=== PATIENT | female | born 1935 | race Caucasian/White ===

== ENCOUNTER 2019-03-25 12:42 | Emergency (ER) | payer MEDICARE, MEDICAID ==
--- NOTE | 2019-03-25 13:01 | EDM.PDOC ---
ED HPI GENERAL MEDICAL PROBLEM - General Chief Complaint: Lower Extremity Injury/Pain Stated Complaint: FALL HOME PAIN HIP Time Seen by Provider: 03/25/19 12:45 Source of Information: Reports: Patient, EMS, EMS Notes Reviewed History Limitations: Reports: No Limitations - History of Present Illness INITIAL COMMENTS - FREE TEXT/NARRATIVE: This is a 84yo F who states she fell getting out of bed. She has severe 10/10 pain of the right hip and leg down to the ankle. She denies any other injuries. She did bump her head a little but denies any loss of consciousness or pain or headache. Patient denies any chest pain or shortness of breath. Denies any dizziness at this time. 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(s) (Ambulance has given 100mcg of fentanyl and 2.5mg of Versaid) Right Hip Pain Score (Numeric/FACES): 10 - Related Data Allergies Allergy/AdvReac Type Severity Reaction Status Date / Time No Known Allergies Allergy Verified 03/25/19 13:50 Home Meds: Home Meds ALPRAZolam [Alprazolam] 0.5 tab PO DAILY PRN 01/18/16 [History] Aspirin [Adult Low Dose Aspirin EC] 81 mg PO DAILY 01/18/16 [History] Bimatoprost [LUMIGAN 0.01% Ophth Soln] 1 drop EYEBOTH QPM 01/18/16 [History] Brimonidine [Alphagan 0.2% Ophth Soln] 1 drop EYEBOTH BID 01/18/16 [History] Fluticasone Propionate [Flonase] 1 spray NASBOTH DAILY 01/18/16 [History] Hydrochlorothiazide 1 tab PO DAILY 01/18/16 [History] Lisinopril 2 tab PO DAILY 01/18/16 [History] Omeprazole 40 mg PO ACBREAKFAST 01/18/16 [History] Sertraline HCl 50 mg PO QPM 01/18/16 [History] Simvastatin 1 tab PO BEDTIME 01/18/16 [History] amLODIPine Besylate [Amlodipine Besylate] 1 tab PO DAILY 01/18/16 [History] ALPRAZolam [Alprazolam] 0.25 mg PO TID PRN 03/25/19 [History] Past Medical History HEENT History: Reports: Hard of Hearing Cardiovascular History: Reports: Heart Murmur, High Cholesterol, Hypertension Gastrointestinal History: Reports: GERD 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 ED EXAM, GENERAL - Physical Exam Exam: See Below Exam Limited By: No Limitations General Appearance: WD/WN, Moderate Distress, Other (drowsy from medications) Eye Exam: Bilateral Eye: EOMI, PERRL Ears: Normal External Exam Nose: Normal Inspection Throat/Mouth: Normal Inspection Head: Atraumatic, Normocephalic Neck: Normal Inspection, Supple, Non-Tender Respiratory/Chest: No Respiratory Distress, Lungs Clear, Normal Breath Sounds Cardiovascular: Normal Peripheral Pulses, Regular Rate, Rhythm Peripheral Pulses: 2+: Dorsalis Pedis (L), Dorsalis Pedis (R) GI/Abdominal: Normal Bowel Sounds, Soft, Non-Tender, No Abnormal Bruit Back Exam: Normal Inspection Extremities: Other (Right hip, leg and ankle pain) Neurological: Alert, Oriented, CN II-XII Intact, Slow to Respond Psychiatric: Normal Affect, Normal Mood Skin Exam: Warm, Dry, Intact Course - Vital Signs Last Recorded V/S: Last Vital Signs Temp 36.8 C 03/25/19 14:37 Pulse 74 03/25/19 14:37 Resp 18 03/25/19 14:37 BP 143/65 H 03/25/19 14:37 Pulse Ox 97 03/25/19 14:37 - Orders/Labs/Meds Orders: Active Orders 24 hr Category Date Time Status Ankle 2V Rt [CR] Stat Exams 03/25/19 Taken Labs: Laboratory Tests 03/25/19 03/25/19 Range/Units 13:10 13:10 WBC 10.6 D (4.0-11.0) K/uL RBC 4.40 (3.80-5.80) M/uL Hgb 13.5 (11.5-16.5) g/dL Hct 38.2 (37.0-47.0) % MCV 87 (76-96) fL MCH 30.7 (27.0-32.0) pg MCHC 35.3 H (31.0-35.0) g/dL RDW 12.6 (11.0-16.0) % Plt Count 191 D (150-500) K/uL MPV 9.9 (6.0-10.0) fL Neut % (Auto) 73.3 H (45.0-70.0) % Lymph % (Auto) 20.8 (20.0-40.0) % [place] % (Auto) 3.9 (3.0-10.0) % Eos % (Auto) 1.8 (1.0-5.0) % Baso % (Auto) 0.2 (0.0-0.5) % Neut # (Auto) 7.74 H (2.00-7.50) K/uL Lymph # (Auto) 2.20 (1.50-4.00) K/uL [place] # (Auto) 0.41 (0.20-0.80) K/uL Eos # (Auto) 0.19 (0.04-0.40) K/uL Baso # (Auto) 0.02 (0.02-0.10) K/uL Sodium 143 (136-145) mmol/L Potassium 4.0 (3.5-5.1) mmol/L Chloride 107 (98-107) mmol/L Carbon Dioxide 25.3 (21.0-32.0) mmol/L Anion Gap 14.7 (5.0-15.0) mmol/L BUN 31 H (8-26) mg/dL Creatinine 1.26 H (0.55-1.02) mg/dL Est Cr Clr Drug Dosing TNP Estimated GFR (MDRD) 41 L (>60) MLS/MIN BUN/Creatinine Ratio 24.6 (6-25) Glucose 140 H D (74-100) mg/dL Calcium 9.4 (8.5-10.1) mg/dL Total Bilirubin 0.6 (0.0-1.0) mg/dL AST 16 (15-37) U/L ALT 16 (12-78) U/L Alkaline Phosphatase 65 (46-116) U/L Total Protein 7.1 (6.4-8.2) g/dL Albumin 4.0 (3.4-5.0) g/dL Globulin 3.1 (2.2-4.2) g/dL Albumin/Globulin Ratio 1.3 (0.8-2.0) TSH, Ultra Sensitive 3.547 D (0.358-3.740) uIU/mL Meds: Medications Discontinued Medications Generic Name Dose Route Start Last Admin Trade Name Freq PRN Reason Stop Dose Admin Hydromorphone HCl 1 mg 03/25/19 14:49 03/25/19 14:52 Dilaudid IVPUSH 03/25/19 14:50 1 mg ONETIME ONE Administration Hydromorphone HCl Confirm 03/25/19 15:01 Dilaudid Administered 03/25/19 15:02 Dose 2 mg .ROUTE .STK-MED ONE Ondansetron HCl Confirm 03/25/19 14:31 03/25/19 14:47 Zofran Administered 03/25/19 14:32 Not Given Dose 4 mg .ROUTE .STK-MED ONE Ondansetron HCl 4 mg 03/25/19 14:47 03/25/19 14:48 Zofran IVPUSH 03/25/19 14:48 4 mg ONETIME ONE Administration Departure - Departure Time of Disposition: 15:30 Disposition: DC/Tfer to Acute Hospital 02 Condition: Good Clinical Impression: Closed right hip fracture Qualifiers: Encounter type: initial encounter Qualified Code(s): S72.001A - Fracture of unspecified part of neck of right femur, initial encounter for closed fracture - Discharge Information Referrals: PCP,None [Primary Care Provider] - Forms: ED Department Discharge Sepsis Event Note - Focused Exam Vital Signs: Vital Signs Temp Pulse Resp BP Pulse Ox 03/25/19 14:37 36.8 C 74 18 143/65 H 97 03/25/19 13:59 57 L 18 140/78 99 03/25/19 13:45 65 18 138/69 98 03/25/19 13:24 76 18 109/40 L 96 03/25/19 12:47 36.2 C 66 16 117/78 97 03/25/19 12:42 36.2 C 66 16 117/78 97 Date Exam was Performed: 03/25/19 Time Exam was Performed: 14:57 - Problem List & Annotations (1) Closed right hip fracture SNOMED Code(s): 822102890 Code(s): S72.001A - FRACTURE OF UNSP PART OF NECK OF RIGHT FEMUR, INIT Status: Acute Priority: High Current Visit: Yes Qualifiers: Encounter type: initial encounter Qualified Code(s): S72.001A - Fracture of unspecified part of neck of right femur, initial encounter for closed fracture - Problem List Review Problem List Initiated/Reviewed/Updated: Yes - My Orders Last 24 Hours: My Active Orders 03/25/19 Ankle 2V Rt [CR] Stat - Assessment/Plan Last 24 Hours: My Active Orders 03/25/19 Ankle 2V Rt [CR] Stat Plan: Patient to be transferred to [facility] for Orthopedic care. [facility] beds were full.
--- NOTE | 2019-03-25 14:31 | CT ---
DATE OF SERVICE: 03/25/2019 CLINICAL DATA: Fall Right femur CT: Multislice axial acquisition was performed. Axial images and sagittal and coronal reformations are reviewed. No priors. There is a comminuted, mildly impacted, intertrochanteric fracture of the right proximal femur with coxa varied deformity. The fracture does extend inferiorly into the femoral diaphysis. No other fractures. There are osteoarthritic changes of the right knee joint and right hip joint. Impression: Right hip fracture. See above. MTDD
--- NOTE | 2019-03-25 14:45 | CT ---
DATE OF SERVICE: 03/25/2019 CLINICAL DATA: Fall Pelvic CT: Multislice axial acquisition was performed. Axial images and sagittal and coronal reformations are reviewed. There is a comminuted intertrochanteric fracture on the right with coxa vera deformity and minimal impaction. No other fractures. There are degenerative changes involving the SI joints and symphysis pubis. There moderate osteoarthritic changes involving both hip joints. There are sclerotic bone lesions adjacent to the roof of the acetabulum on the left, in the left iliac wing, and the left proximal femur. These may represent bone islands. The possibility of sclerotic metastatic disease should be considered. There is soft tissue swelling adjacent to the right proximal femur and hip. There is a sclerotic lesion located subcutaneously in the anterior abdominal wall on the left most likely representing an injection granuloma. Impression: Comminuted intertrochanteric fracture on the right. MTDD
[2019-03-25] MEDS: Ondansetron 4 MG/2 ML SDV ONE (14:47)
[2019-03-25] MEDS: Ondansetron 4 MG/2 ML SDV IVPUSH ONE (14:48)
[2019-03-25] MEDS: HYDROmorphone 2 MG/ML Syringe IVPUSH ONE (14:52)
--- NOTE | 2019-03-25 14:58 | CR ---
DATE OF SERVICE: 03/25/2019 CLINICAL DATA: Fall Right ankle: There is diffuse osteopenia. There is a questionable lucency through the base of the fourth metatarsal suspicious for a nondisplaced fracture. No other evidence of fracture or dislocation. There are osteoarthritic changes involving multiple joints. There are plantar and posterior calcaneal spurs. No focal lytic or blastic bone lesions. MTDD
[2019-03-25] MEDS ORDERED: HYDROmorphone 2 MG/ML SDV ONE (15:01)
[2019-03-25 15:05] VITALS: BP 117/57; PULSE 78
== END 2019-03-25 15:45 ==
LOC: LB.ED 12:42
DX: S72.001A Fracture of unspecified part of neck of right femur, initial encounter for closed fracture (principal); I10 Essential (primary) hypertension; E78.00 Pure hypercholesterolemia, unspecified; K21.9 Gastro-esophageal reflux disease without esophagitis; F41.9 Anxiety disorder, unspecified; F32.9 Major depressive disorder, single episode, unspecified; Z79.82 Long term (current) use of aspirin; Z79.899 Other long term (current) drug therapy; W06.XXXA Fall from bed, initial encounter
CPT/HCPCS: 36415; 72192; 73600; 73700; 80053; 84443; 85025; 96374; 96375; 99285; J1170; J2405; 99284

== ENCOUNTER 2019-05-07 17:03 | Observation (INO) | payer MEDICARE, MEDICAID ==
--- NOTE | 2019-05-07 17:18 | PCM.HP.2 ---
H&P History of Present Illness - General Date of Service: 05/07/19 Admit Problem/Dx: Admission Diagnosis/Problem Admission Diagnosis/Problem Weakness Source of Information: Patient History Limitations: Reports: No Limitations - History of Present Illness Initial Comments - Free Text/Narative: This is a 84yo F with prior right hip arthroplasty due to fracture with weakness and inability to move in the home or take care of herself. Her pain is manageable but not under full control as well. She is unable to get up by herself or transfer. She has gotten much worse since her discharge from Swing bed per patient. Onset of Symptoms: Reports: Gradual Duration of Symptoms: Reports: Getting Worse Location: Reports: Generalized Severity: Moderate Improves with: Reports: None Worsens with: Reports: None - Related Data Allergies/Adverse Reactions: Allergies Allergy/AdvReac Type Severity Reaction Status Date / Time No Known Allergies Allergy Verified 03/25/19 13:50 Home Medications: Home Meds ALPRAZolam [Alprazolam] 0.5 tab PO DAILY PRN 01/18/16 [History] Aspirin [Adult Low Dose Aspirin EC] 81 mg PO DAILY 01/18/16 [History] Bimatoprost [LUMIGAN 0.01% Ophth Soln] 1 drop EYEBOTH QPM 01/18/16 [History] Brimonidine [Alphagan 0.2% Ophth Soln] 1 drop EYEBOTH BID 01/18/16 [History] Fluticasone Propionate [Flonase] 1 spray NASBOTH DAILY 01/18/16 [History] Hydrochlorothiazide 1 tab PO DAILY 01/18/16 [History] Lisinopril 2 tab PO DAILY 01/18/16 [History] Omeprazole 40 mg PO ACBREAKFAST 01/18/16 [History] Sertraline HCl 50 mg PO QPM 01/18/16 [History] Simvastatin 1 tab PO BEDTIME 01/18/16 [History] amLODIPine Besylate [Amlodipine Besylate] 1 tab PO DAILY 01/18/16 [History] ALPRAZolam [Alprazolam] 0.25 mg PO TID PRN 03/25/19 [History] Past Medical History HEENT History: Reports: Hard of Hearing Cardiovascular History: Reports: Heart Murmur, High Cholesterol, Hypertension Gastrointestinal History: Reports: GERD 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 Exam - Exam Exam: See Below - Exam General: Alert, Oriented, Cooperative HEENT: PERRLA, Conjunctiva Clear, EACs Clear Neck: Supple, Trachea Midline Lungs: Clear to Auscultation, Normal Respiratory Effort Cardiovascular: Regular Rate, Regular Rhythm Back Exam: Normal Inspection Extremities: Normal Inspection Neuro Extensive - Mental Status: Alert, Oriented x3, Normal Mood/Affect Neuro Extensive - Motor, Sensory, Reflexes: Other (generalized weakness of arms and legs, ) Psychiatric: Alert, Normal Affect, Normal Mood - Problem List (1) Weakness generalized SNOMED Code(s): 92501875 ICD Code: R53.1 - WEAKNESS Status: Acute Priority: High Current Visit: Yes (2) Closed right hip fracture SNOMED Code(s): 443866491 ICD Code: S72.001A - FRACTURE OF UNSP PART OF NECK OF RIGHT FEMUR, INIT Status: Resolved Priority: High Current Visit: No Qualifiers: Encounter type: sequela Qualified Code(s): S72.001S - Fracture of unspecified part of neck of right femur, sequela Problem List Initiated/Reviewed/Updated: Yes Orders Last 24hrs: Active Orders 24 hr Category Date Time Status Patient Status [ADT] Urgent ADT 05/07/19 17:11 Ordered Up With Assistance [RC] ASDIRECTED Care 05/07/19 17:11 Ordered Vital Signs [RC] Q4H Care 05/07/19 17:11 Ordered OT Evaluation and Treatment [CONS] Routine Cons 05/07/19 17:11 Ordered PT Evaluation and Treatment [CONS] Routine Cons 05/07/19 17:11 Ordered Regular Diet [DIET] Diet 05/07/19 Breakfast Ordered ALPRAZolam [Alprazolam] Med 05/07/19 17:12 Ordered 0.25 mg PO TID PRN Aspirin [Halfprin] Med 05/08/19 08:00 Ordered 81 mg PO DAILY Bimatoprost [LUMIGAN 0.01% Ophth Soln] Med 05/07/19 20:00 Ordered 1 drop EYEBOTH QPM Brimonidine [Alphagan 0.2% Ophth Soln] Med 05/07/19 20:00 Ordered 1 drop EYEBOTH BID Fluticasone Propionate [Flonase] Med 05/08/19 08:00 Ordered 1 spray NASBOTH DAILY Omeprazole [Omeprazole] Med 05/08/19 07:00 Ordered 40 mg PO ACBREAKFAST Sertraline [Zoloft] Med 05/07/19 20:00 Ordered 50 mg PO QPM Simvastatin [Zocor] Med 05/07/19 20:00 Ordered 20 mg PO BEDTIME amLODIPine [Norvasc] Med 05/08/19 08:00 Ordered 5 mg PO DAILY hydroCHLOROthiazide Med 05/08/19 08:00 Ordered 12.5 mg PO DAILY lisinopriL [Prinivil] Med 05/08/19 08:00 Ordered 10 mg PO DAILY Assessment/Plan Comment:: Patient to be placed in observation for management and PT/OT evaluation for ability to return home. Discussed likely need for subacute rehab for strength and ability to do ADLs.
[2019-05-07] MEDS ORDERED: MECLIZINE 25 MG PO PRN (18:03)
[2019-05-07] MEDS ORDERED: traMADol 50 MG Tab PO PRN (18:05)
[2019-05-07] MEDS ORDERED: ALPRAZOLAM 0.5 MG PO PRN (20:00)
[2019-05-07] MEDS ORDERED: Simvastatin 20 MG Tab*PT OWN MED PO SCH (20:00)
[2019-05-07] MEDS ORDERED: SERTRALINE 50 MG PO SCH (20:00)
[2019-05-07] MEDS ORDERED: BIMATOPROST 0.01% EYEBOTH SCH (20:00)
[2019-05-07] MEDS: CHOLECALCIFEROL 25 MCG PO SCH (20:28)
[2019-05-07] MEDS: BRIMONIDINE 0.2% EYEBOTH SCH (20:29)
[2019-05-07] MEDS: Acetaminophen 500 MG Tab PO PRN (21:04)
[2019-05-08 00:30] VITALS: PULSE 63
[2019-05-08] MEDS: CHOLECALCIFEROL 25 MCG PO SCH (07:29)
[2019-05-08] MEDS: BRIMONIDINE 0.2% EYEBOTH SCH (07:31)
[2019-05-08] MEDS ORDERED: Aspirin 81 MG Tab.EC PO SCH (08:00)
[2019-05-08] MEDS ORDERED: POTASSIUM CHLORIDE 10 MEQ PO SCH (08:00)
[2019-05-08] MEDS ORDERED: LISINOPRIL 20 MG PO SCH (08:00)
[2019-05-08] MEDS ORDERED: Lisinopril 10 MG Tab PO SCH (08:00)
[2019-05-08] MEDS ORDERED: AMLODIPINE 5 MG PO SCH (08:00)
[2019-05-08] MEDS ORDERED: FLUTICASONE PROPIONATE NASBOTH SCH (08:00)
[2019-05-08] MEDS ORDERED: HYDROCHLOROTHIAZIDE 12.5 MG PO SCH (08:00)
[2019-05-08 08:05] VITALS: BP 137/62
[2019-05-08] MEDS: Acetaminophen 500 MG Tab PO PRN (08:53)
--- NOTE | 2019-05-08 10:16 | PCM.DCSUM1 ---
Discharge Summary - Discharge Data Discharge Date: 05/08/19 Discharge Disposition: DC/Tfer W/I Hosp To Swing 61 Condition: Good - Referral to Home Health Primary Care Physician: PCP None - Discharge Diagnosis/Problem(s) (1) Weakness generalized SNOMED Code(s): 23207893 ICD Code: R53.1 - WEAKNESS Status: Acute Priority: High Current Visit: Yes (2) Closed right hip fracture SNOMED Code(s): 325192128 ICD Code: S72.001A - FRACTURE OF UNSP PART OF NECK OF RIGHT FEMUR, INIT Status: Resolved Priority: High Current Visit: No Qualifiers: Encounter type: sequela Qualified Code(s): S72.001S - Fracture of unspecified part of neck of right femur, sequela - Patient Summary/Data Consults: Consultations 05/07/19 17:11 OT Evaluation and Treatment [CONS] Routine Please Evaluate and Treat. OT Reason for Consult: ADL's This query below is only for informational purposes and is not editable. PT Evaluation and Treatment [CONS] Routine Please Evaluate and Treat. PT Reason for Consult: Ambulation This query below is only for informational purposes and is not editable. - Discharge Plan Home Medications: Home Meds Aspirin [Adult Low Dose Aspirin EC] 81 mg PO DAILY 01/18/16 [History] Bimatoprost [LUMIGAN 0.01% Ophth Soln] 1 drop EYEBOTH QPM 01/18/16 [History] Brimonidine [Alphagan 0.2% Ophth Soln] 1 drop EYEBOTH BID 01/18/16 [History] Fluticasone Propionate [Flonase] 1 spray NASBOTH DAILY 01/18/16 [History] Hydrochlorothiazide 1 tab PO DAILY 01/18/16 [History] Omeprazole 40 mg PO ACBREAKFAST 01/18/16 [History] Sertraline HCl 50 mg PO QPM 01/18/16 [History] Simvastatin 1 tab PO BEDTIME 01/18/16 [History] amLODIPine Besylate [Amlodipine Besylate] 1 tab PO DAILY 01/18/16 [History] ALPRAZolam [Alprazolam] 0.25 mg PO TID PRN 03/25/19 [History] Acetaminophen 1,000 mg PO Q8HR PRN 05/07/19 [History] Cholecalciferol (Vitamin D3) [Vitamin D3] 25 mcg PO BID 05/07/19 [History] Lisinopril [Zestril] 20 mg PO DAILY 05/07/19 [History] Meclizine [Antivert] 25 mg PO TID PRN 05/07/19 [History] Potassium Chloride [Klor-Con 10] 10 meq PO DAILY 05/07/19 [History] traMADol [Ultram] 50 mg PO Q6H PRN 05/07/19 [History] - Discharge Summary/Plan Comment DC Time >30 min.: No Discharge Summary/Plan Comment: Patient to be admitted to swing bed for rehabilitation due to weakness and inability to manage ALDs, transfers and ambulation. - Patient Data Vitals - Most Recent: Last Vital Signs Temp 36.9 C 05/08/19 07:25 Pulse 63 05/08/19 07:25 Resp 16 05/08/19 07:25 BP 137/62 05/08/19 07:25 Pulse Ox 97 05/08/19 07:25 Weight - Most Recent: 75.841 kg Med Orders - Current: Current Medications Acetaminophen (Tylenol Extra Strength) 1,000 mg PO Q8HR PRN PRN Reason: Pain (mild 1-3) Last Admin: 05/08/19 08:53 Dose: 1,000 mg Aspirin (Halfprin) 81 mg PO DAILY [facility] Last Admin: 05/08/19 08:53 Dose: 81 mg Alprazolam 0.5 Mg (Tab *Pt Own Med*) 0 each PO TID PRN PRN Reason: ANXIETY Last Admin: 05/07/19 21:05 Dose: 1 each Amlodipine 5 Mg Tab* (Pt Own Med*) 0 each PO DAILY [facility] Last Admin: 05/08/19 07:30 Dose: 1 each Bimatoprost 0.01% Ophth Soln 2.5 Ml Bottle*Pt Own Med* 0 each EYEBOTH QPM [facility] Last Admin: 05/07/19 20:28 Dose: 1 each Brimonidine 0.2% Ophth Soln 5 Ml Bottle*Pt Own Med* 0 each EYEBOTH BID [facility] Last Admin: 05/08/19 07:31 Dose: 1 each Fluticasone Propionate Nasal [place] 16 Gm Bottle* Pt Own Med* 0 each NASBOTH DAILY [facility] Last Admin: 05/08/19 07:32 Dose: 1 each Hydrochlorothiazide 12.5 Mg Cap*Pt Own Med* 0 each PO DAILY [facility] Last Admin: 05/08/19 07:32 Dose: 1 each (Omeprazole [ Omeprazole] 40 Mg)* Pt Own Med* 0 each PO ACBREAKFAST [facility] Last Admin: 05/08/19 06:57 Dose: 1 each Sertraline 50 Mg Tab (*Pt Own Med*) 0 each PO QPM [facility] Last Admin: 05/07/19 20:29 Dose: 1 each Simvastatin 20 Mg (Tab*Pt Own Med*) 0 each PO BEDTIME [facility] Last Admin: 05/07/19 20:29 Dose: 1 each (Cholecalciferol ( Vitamin D3) [Vitamin D3] 25 Mcg)*Pt Own Med* 0 each PO BID@ 0800,1700 [facility] Last Admin: 05/08/19 07:29 Dose: 1 each Lisinopril 20 Mg Tab (*Pt Own Med*) 0 each PO DAILY [facility] Last Admin: 05/08/19 08:53 Dose: 1 each (Meclizine [Antivert (] 25 Mg)*Pt Own Med*) 0 each PO TID PRN PRN Reason: Dizziness Potassium Chloride 10 Meq Tab.Er*Pt Own Med* 0 each PO DAILY [facility] Last Admin: 05/08/19 07:33 Dose: 1 each Tramadol HCl (Ultram) 50 mg PO Q6H PRN PRN Reason: Pain (moderate 4-6) Discontinued Medications Lisinopril (Prinivil) 10 mg PO DAILY [facility]
== END 2019-05-08 10:30 | disposition swing bed (61) ==
LOC: UNDOADMOB 17:03 → LB.MS 17:03
PROVIDERS: ADMIT Family Medicine; ATTEND Family Medicine
DX: R53.1 Weakness (principal); S72.001S Fracture of unspecified part of neck of right femur, sequela; I10 Essential (primary) hypertension; E78.00 Pure hypercholesterolemia, unspecified; K21.9 Gastro-esophageal reflux disease without esophagitis; F41.9 Anxiety disorder, unspecified; F32.9 Major depressive disorder, single episode, unspecified; H91.90 Unspecified hearing loss, unspecified ear; M19.90 Unspecified osteoarthritis, unspecified site; W19.XXXS Unspecified fall, sequela; Z79.82 Long term (current) use of aspirin; Z79.899 Other long term (current) drug therapy
CPT/HCPCS: 36415; 80053; 84443; 85025; 97110-GP; 97161-GP; A9270-GY; G0378; G0379

== ENCOUNTER 2019-05-08 09:53 | Inpatient (IN) | payer MEDICARE, MEDICAID ==
--- NOTE | 2019-05-08 10:23 | PCM.HP.2 ---
H&P History of Present Illness - General Date of Service: 05/08/19 Admit Problem/Dx: Admission Diagnosis/Problem Admission Diagnosis/Problem Weakness Source of Information: Patient, Old Records History Limitations: Reports: No Limitations - History of Present Illness Initial Comments - Free Text/Narative: This is a 84yo F admitted to swing bed for rehabilitation and strengthening. Patient is currently recovering from an intertrochanteric right hip fracture post arthroplasty. She continues to be weak and unable to care for herself at home and maintain her regular ADLs. Duration of Symptoms: Reports: Constant Severity: Mild Improves with: Reports: None Worsens with: Reports: Movement Associated Symptoms: Reports: Weakness - Related Data Allergies/Adverse Reactions: Allergies Allergy/AdvReac Type Severity Reaction Status Date / Time No Known Allergies Allergy Verified 03/25/19 13:50 Home Medications: Home Meds Aspirin [Adult Low Dose Aspirin EC] 81 mg PO DAILY 01/18/16 [History] Bimatoprost [LUMIGAN 0.01% Ophth Soln] 1 drop EYEBOTH QPM 01/18/16 [History] Brimonidine [Alphagan 0.2% Ophth Soln] 1 drop EYEBOTH BID 01/18/16 [History] Fluticasone Propionate [Flonase] 1 spray NASBOTH DAILY 01/18/16 [History] Hydrochlorothiazide 1 tab PO DAILY 01/18/16 [History] Omeprazole 40 mg PO ACBREAKFAST 01/18/16 [History] Sertraline HCl 50 mg PO QPM 01/18/16 [History] Simvastatin 1 tab PO BEDTIME 01/18/16 [History] amLODIPine Besylate [Amlodipine Besylate] 1 tab PO DAILY 01/18/16 [History] ALPRAZolam [Alprazolam] 0.25 mg PO TID PRN 03/25/19 [History] Acetaminophen 1,000 mg PO Q8HR PRN 05/07/19 [History] Cholecalciferol (Vitamin D3) [Vitamin D3] 25 mcg PO BID 05/07/19 [History] Lisinopril [Zestril] 20 mg PO DAILY 05/07/19 [History] Meclizine [Antivert] 25 mg PO TID PRN 05/07/19 [History] Potassium Chloride [Klor-Con 10] 10 meq PO DAILY 05/07/19 [History] traMADol [Ultram] 50 mg PO Q6H PRN 05/07/19 [History] Past Medical History HEENT History: Reports: Hard of Hearing Cardiovascular History: Reports: Heart Murmur, High Cholesterol, Hypertension Gastrointestinal History: Reports: GERD Genitourinary History: Reports: Urinary Incontinence 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 Exam - Exam Exam: See Below - Exam General: Alert, Oriented, Cooperative HEENT: PERRLA, Conjunctiva Clear, EACs Clear Neck: Supple, Trachea Midline Lungs: Clear to Auscultation, Normal Respiratory Effort Cardiovascular: Regular Rate, Regular Rhythm GI/Abdominal Exam: Normal Bowel Sounds Back Exam: Normal Inspection Extremities: Leg Pain Peripheral Pulses: 2+: Dorsalis Pedis (L), Dorsalis Pedis (R) Skin: Warm, Dry, Intact - Problem List (1) Weakness generalized SNOMED Code(s): 99330410 ICD Code: R53.1 - WEAKNESS Status: Acute Priority: High (2) Closed right hip fracture SNOMED Code(s): 088667765 ICD Code: S72.001A - FRACTURE OF UNSP PART OF NECK OF RIGHT FEMUR, INIT Status: Resolved Priority: High Qualifiers: Encounter type: sequela Problem List Initiated/Reviewed/Updated: Yes Orders Last 24hrs: Active Orders 24 hr Category Date Time Status Patient Status [ADT] Routine ADT 05/08/19 10:16 Ordered Ambulate [RC] ASDIRECTED Care 05/08/19 10:16 Ordered Oxygen Therapy [RC] PRN Care 05/08/19 10:16 Ordered VTE/DVT Education [RC] Per Unit Routine Care 05/08/19 10:16 Ordered Vital Signs [RC] PER UNIT ROUTINE Care 05/08/19 10:16 Ordered OT Evaluation and Treatment [CONS] Routine Cons 01/30/20 10:16 Ordered PT Evaluation and Treatment [CONS] Routine Cons 05/08/19 10:16 Ordered Regular Diet [DIET] Diet 05/08/19 Lunch Ordered Resuscitation Status Routine Resus Stat 05/08/19 10:16 Ordered Assessment/Plan Comment:: Patient admitted to swing bed for management of her weakness and rehabilitation. She is willing to work with PT/OT and plan of care is for return to full independent activities at home. Continue to monitor pain and manage - currently controlled.
[2019-05-08] MEDS ORDERED: Tuberculin, PPD 5 Units/0.1 ML 1 ML MDV IDERM ONE (11:31)
[2019-05-08] MEDS ORDERED: ALPRAZOLAM 0.25 MG PO PRN (13:46)
[2019-05-08] MEDS ORDERED: ALPRAZolam 0.25 MG Tab PO PRN (15:02)
[2019-05-08] MEDS: Acetaminophen 500 MG Tab PO PRN (19:21)
[2019-05-08] MEDS: ALPRAZolam 0.25 MG Tab PO SCH (19:21)
[2019-05-08] MEDS: Cholecalciferol (Vitamin D3) 25 MCG Tab PO SCH (19:22)
[2019-05-08] MEDS: Simvastatin 20 MG Tab PO SCH (19:22)
[2019-05-08] MEDS: Sertraline 50 MG Tab PO SCH (19:22)
[2019-05-08] MEDS: Brimonidine 0.2% Ophth Soln 5 ML Bottle EYEBOTH SCH (19:31)
[2019-05-08] MEDS ORDERED: ALPRAZolam 0.25 MG Tab PO SCH (20:00)
[2019-05-09] MEDS: Omeprazole 20 MG Cap.CR PO SCH (06:31)
[2019-05-09] MEDS: Brimonidine 0.2% Ophth Soln 5 ML Bottle EYEBOTH SCH ×2 (08:03→20:35)
[2019-05-09] MEDS: Fluticasone Propionate Nasal Spray 16 GM Bottle NASBOTH SCH (08:03)
[2019-05-09] MEDS: Potassium Chloride 10 MEQ Tab.ER PO SCH (08:04)
[2019-05-09] MEDS: Aspirin 81 MG Tab.EC PO SCH (08:04)
[2019-05-09] MEDS: amLODIPine 5 MG Tab PO SCH (08:04)
[2019-05-09] MEDS: Lisinopril 10 MG Tab PO SCH (08:07)
[2019-05-09] MEDS: Hydrochlorothiazide 12.5 MG Cap PO SCH (08:07)
[2019-05-09] MEDS: Cholecalciferol (Vitamin D3) 25 MCG Tab PO SCH ×2 (08:08→20:37)
[2019-05-09] MEDS: ALPRAZolam 0.25 MG Tab PO SCH (20:35)
[2019-05-09] MEDS: Sertraline 50 MG Tab PO SCH (20:36)
[2019-05-09] MEDS: Acetaminophen 500 MG Tab PO PRN (20:36)
[2019-05-09] MEDS: Simvastatin 20 MG Tab PO SCH (20:37)
[2019-05-10] MEDS: Omeprazole 20 MG Cap.CR PO SCH (07:21)
[2019-05-10] MEDS: Fluticasone Propionate Nasal Spray 16 GM Bottle NASBOTH SCH (07:31)
[2019-05-10] MEDS: Hydrochlorothiazide 12.5 MG Cap PO SCH (07:33)
[2019-05-10] MEDS: Lisinopril 10 MG Tab PO SCH (07:33)
[2019-05-10] MEDS: Brimonidine 0.2% Ophth Soln 5 ML Bottle EYEBOTH SCH ×2 (07:33→20:00)
[2019-05-10] MEDS: amLODIPine 5 MG Tab PO SCH (07:34)
[2019-05-10] MEDS: Potassium Chloride 10 MEQ Tab.ER PO SCH (07:34)
[2019-05-10] MEDS: Aspirin 81 MG Tab.EC PO SCH (07:34)
[2019-05-10] MEDS: Cholecalciferol (Vitamin D3) 25 MCG Tab PO SCH ×2 (07:34→19:59)
[2019-05-10] MEDS: Acetaminophen 500 MG Tab PO PRN (16:31)
[2019-05-10] MEDS: ALPRAZolam 0.25 MG Tab PO SCH (19:58)
[2019-05-10] MEDS: Simvastatin 20 MG Tab PO SCH (19:59)
[2019-05-10] MEDS: Sertraline 50 MG Tab PO SCH (19:59)
[2019-05-11] MEDS: Acetaminophen 500 MG Tab PO PRN (07:11)
[2019-05-11] MEDS: Fluticasone Propionate Nasal Spray 16 GM Bottle NASBOTH SCH (07:12)
[2019-05-11] MEDS: Omeprazole 20 MG Cap.CR PO SCH (07:13)
[2019-05-11] MEDS: Hydrochlorothiazide 12.5 MG Cap PO SCH (07:13)
[2019-05-11] MEDS: Aspirin 81 MG Tab.EC PO SCH (07:13)
[2019-05-11] MEDS: Potassium Chloride 10 MEQ Tab.ER PO SCH (07:13)
[2019-05-11] MEDS: Lisinopril 10 MG Tab PO SCH (07:14)
[2019-05-11] MEDS: Brimonidine 0.2% Ophth Soln 5 ML Bottle EYEBOTH SCH ×2 (07:15→19:53)
[2019-05-11] MEDS: Cholecalciferol (Vitamin D3) 25 MCG Tab PO SCH ×2 (07:15→19:48)
[2019-05-11] MEDS: amLODIPine 5 MG Tab PO SCH (07:15)
[2019-05-11] MEDS: ALPRAZolam 0.25 MG Tab PO SCH (19:46)
[2019-05-11] MEDS: Sertraline 50 MG Tab PO SCH (19:48)
[2019-05-11] MEDS: Simvastatin 20 MG Tab PO SCH (19:48)
[2019-05-12] MEDS: Acetaminophen 500 MG Tab PO PRN ×3 (00:43→20:17)
[2019-05-12] MEDS: Hydrochlorothiazide 12.5 MG Cap PO SCH (08:05)
[2019-05-12] MEDS: amLODIPine 5 MG Tab PO SCH (08:06)
[2019-05-12] MEDS: Aspirin 81 MG Tab.EC PO SCH (08:06)
[2019-05-12] MEDS: Lisinopril 10 MG Tab PO SCH (08:07)
[2019-05-12] MEDS: Potassium Chloride 10 MEQ Tab.ER PO SCH (08:07)
[2019-05-12] MEDS: Omeprazole 20 MG Cap.CR PO SCH (08:07)
[2019-05-12] MEDS: Brimonidine 0.2% Ophth Soln 5 ML Bottle EYEBOTH SCH ×2 (08:11→20:15)
[2019-05-12] MEDS: Cholecalciferol (Vitamin D3) 25 MCG Tab PO SCH ×2 (08:11→20:16)
[2019-05-12] MEDS: Fluticasone Propionate Nasal Spray 16 GM Bottle NASBOTH SCH (08:11)
[2019-05-12] MEDS: traMADol 50 MG Tab PO PRN (14:13)
[2019-05-12] MEDS: ALPRAZolam 0.25 MG Tab PO SCH (20:16)
[2019-05-12] MEDS: Sertraline 50 MG Tab PO SCH (20:16)
[2019-05-12] MEDS: Simvastatin 20 MG Tab PO SCH (20:16)
[2019-05-13] MEDS: amLODIPine 5 MG Tab PO SCH (07:56)
[2019-05-13] MEDS: Aspirin 81 MG Tab.EC PO SCH (07:56)
[2019-05-13] MEDS: Potassium Chloride 10 MEQ Tab.ER PO SCH (07:57)
[2019-05-13] MEDS: Hydrochlorothiazide 12.5 MG Cap PO SCH (07:57)
[2019-05-13] MEDS: Omeprazole 20 MG Cap.CR PO SCH (07:57)
[2019-05-13] MEDS: Lisinopril 10 MG Tab PO SCH (07:57)
[2019-05-13] MEDS: Brimonidine 0.2% Ophth Soln 5 ML Bottle EYEBOTH SCH ×2 (07:58→20:02)
[2019-05-13] MEDS: Fluticasone Propionate Nasal Spray 16 GM Bottle NASBOTH SCH (07:58)
[2019-05-13] MEDS: Cholecalciferol (Vitamin D3) 25 MCG Tab PO SCH ×2 (07:58→20:01)
[2019-05-13] MEDS: Acetaminophen 500 MG Tab PO PRN (08:04)
[2019-05-13] MEDS: traMADol 50 MG Tab PO PRN (20:00)
[2019-05-13] MEDS: ALPRAZolam 0.25 MG Tab PO SCH (20:00)
[2019-05-13] MEDS: Sertraline 50 MG Tab PO SCH (20:01)
[2019-05-13] MEDS: Simvastatin 20 MG Tab PO SCH (20:01)
[2019-05-14] MEDS: Omeprazole 20 MG Cap.CR PO SCH (07:55)
[2019-05-14] MEDS: Potassium Chloride 10 MEQ Tab.ER PO SCH (08:08)
[2019-05-14] MEDS: Brimonidine 0.2% Ophth Soln 5 ML Bottle EYEBOTH SCH ×2 (08:08→20:03)
[2019-05-14] MEDS: Lisinopril 10 MG Tab PO SCH (08:09)
[2019-05-14] MEDS: Cholecalciferol (Vitamin D3) 25 MCG Tab PO SCH ×2 (08:09→20:02)
[2019-05-14] MEDS: amLODIPine 5 MG Tab PO SCH (08:10)
[2019-05-14] MEDS: Hydrochlorothiazide 12.5 MG Cap PO SCH (08:10)
[2019-05-14] MEDS: Fluticasone Propionate Nasal Spray 16 GM Bottle NASBOTH SCH (08:11)
[2019-05-14] MEDS: Acetaminophen 500 MG Tab PO PRN ×2 (08:11→16:05)
[2019-05-14] MEDS: Aspirin 81 MG Tab.EC PO SCH (08:11)
[2019-05-14] MEDS: traMADol 50 MG Tab PO PRN (20:01)
[2019-05-14] MEDS: Simvastatin 20 MG Tab PO SCH (20:02)
[2019-05-14] MEDS: Sertraline 50 MG Tab PO SCH (20:02)
[2019-05-14] MEDS: ALPRAZolam 0.25 MG Tab PO SCH (20:03)
[2019-05-15] MEDS: Hydrochlorothiazide 12.5 MG Cap PO SCH (08:10)
[2019-05-15] MEDS: Omeprazole 20 MG Cap.CR PO SCH (08:20)
[2019-05-15] MEDS: Brimonidine 0.2% Ophth Soln 5 ML Bottle EYEBOTH SCH ×2 (08:21→19:21)
[2019-05-15] MEDS: Fluticasone Propionate Nasal Spray 16 GM Bottle NASBOTH SCH (08:22)
[2019-05-15] MEDS: Aspirin 81 MG Tab.EC PO SCH (08:23)
[2019-05-15] MEDS: Cholecalciferol (Vitamin D3) 25 MCG Tab PO SCH ×2 (08:24→19:23)
[2019-05-15] MEDS: Potassium Chloride 10 MEQ Tab.ER PO SCH ×2 (08:25→08:54)
[2019-05-15] MEDS: amLODIPine 5 MG Tab PO SCH (08:28)
[2019-05-15] MEDS: Lisinopril 10 MG Tab PO SCH (08:29)
--- NOTE | 2019-05-15 09:02 | PCM.PN ---
- General Info Date of Service: 05/12/19 Subjective Update: Patient stable but improving. She remain very weak and requiring assistance. Denies any shortness of breath, no chest pain, no other health concerns at this time. Functional Status: Reports: Pain Controlled - Review of Systems General: Reports: Weakness HEENT: Reports: No Symptoms Pulmonary: Reports: No Symptoms Cardiovascular: Reports: No Symptoms Gastrointestinal: Reports: No Symptoms Genitourinary: Reports: No Symptoms Musculoskeletal: Reports: Leg Pain, Joint Pain - Patient Data Vitals - Most Recent: Last Vital Signs Temp 37.0 C 05/14/19 07:58 Pulse 75 05/14/19 07:58 Resp 20 05/14/19 07:58 BP 139/58 L 05/15/19 08:29 Pulse Ox 99 05/14/19 07:58 Weight - Most Recent: 78.188 kg Med Orders - Current: Current Medications Acetaminophen (Tylenol Extra Strength) 1,000 mg PO Q8HR PRN PRN Reason: Pain (mild 1-3) Last Admin: 05/14/19 16:05 Dose: 1,000 mg Alprazolam (Xanax) 0.5 mg PO QPM [facility] Last Admin: 05/14/19 20:03 Dose: 0.5 mg Alprazolam (Xanax) 0.25 mg PO TID PRN PRN Reason: ANXIETY Amlodipine Besylate (Norvasc) 5 mg PO DAILY [facility] Last Admin: 05/15/19 08:28 Dose: 5 mg Aspirin (Halfprin) 81 mg PO DAILY [facility] Last Admin: 05/15/19 08:23 Dose: 81 mg Bimatoprost (Lumigan 0.01% Ophth Soln) 0 ml EYEBOTH QPM [facility] Last Admin: 05/14/19 20:03 Dose: 1 drop Brimonidine Tartrate (Alphagan 0.2% Ophth Soln) 0 ml EYEBOTH BID [facility] Last Admin: 05/15/19 08:21 Dose: 2 drop Cholecalciferol (Vitamin D3) 25 mcg PO BID [facility] Last Admin: 05/15/19 08:24 Dose: 25 mcg Fluticasone Propionate (Flonase) 0 gm NASBOTH DAILY [facility] Last Admin: 05/15/19 08:22 Dose: 1 spray Hydrochlorothiazide (Hydrochlorothiazide) 12.5 mg PO DAILY [facility] Last Admin: 05/14/19 08:10 Dose: 12.5 mg Lisinopril (Prinivil) 10 mg PO DAILY [facility] Last Admin: 05/15/19 08:29 Dose: 10 mg Meclizine HCl (Antivert) 25 mg PO TID PRN PRN Reason: DIZZINESS Last Admin: 05/09/19 09:51 Dose: 25 mg Omeprazole (Omeprazole) 40 mg PO ACBREAKFAST [facility] Last Admin: 05/15/19 08:20 Dose: 40 mg Potassium Chloride (Klor-Con 10) 10 meq PO DAILY [facility] Last Admin: 05/15/19 08:54 Dose: 10 meq Sertraline HCl (Zoloft) 50 mg PO QPM [facility] Last Admin: 05/14/19 20:02 Dose: 50 mg Simvastatin (Zocor) 20 mg PO BEDTIME [facility] Last Admin: 05/14/19 20:02 Dose: 20 mg Tramadol HCl (Ultram) 50 mg PO Q6H PRN PRN Reason: Pain (moderate 4-6) Last Admin: 05/14/19 20:01 Dose: 50 mg Discontinued Medications Alprazolam (Xanax) 0.5 mg PO BEDTIME [facility] Tuberculin PPD (Aplisol) 5 unit IDERM ONETIME ONE Stop: 05/08/19 11:32 Last Admin: 05/08/19 13:00 Dose: 5 unit - Exam General: Alert, Oriented, Cooperative HEENT: Pupils Equal, Pupils Reactive, EOMI Neck: Supple Lungs: Clear to Auscultation, Normal Respiratory Effort Cardiovascular: Regular Rate, Regular Rhythm GI/Abdominal Exam: Normal Bowel Sounds, Soft, Non-Tender Extremities: Normal Inspection Sepsis Event Note - Evaluation Sepsis Screening Result: No Definite Risk - Focused Exam Vital Signs: Vital Signs BP 05/15/19 08:29 139/58 L 05/15/19 08:28 139/58 L Date Exam was Performed: 05/15/19 Time Exam was Performed: 09:00 - Problem List & Annotations (1) Weakness generalized SNOMED Code(s): 71024246 Code(s): R53.1 - WEAKNESS Status: Acute Priority: High Current Visit: Yes (2) Closed right hip fracture SNOMED Code(s): 571153331 Code(s): S72.001A - FRACTURE OF UNSP PART OF NECK OF RIGHT FEMUR, INIT Status: Resolved Priority: High Current Visit: No Qualifiers: Encounter type: sequela - Problem List Review Problem List Initiated/Reviewed/Updated: Yes - My Orders Last 24 Hours: My Active Orders 05/15/19 08:45 BASIC METABOLIC PANEL,BMP [CHEM] Routine - Plan Plan:: Patient admitted to swing bed for management of her weakness and rehabilitation. She is willing to work with PT/OT and plan of care is for return to full independent activities at home. Continue to monitor pain and manage - currently controlled. Continue PT/OT and cares. Patient improvement gradual. Plan of care for independence and discharge to home.
[2019-05-15] MEDS: Acetaminophen 500 MG Tab PO PRN ×2 (09:18→19:20)
[2019-05-15] MEDS: ALPRAZolam 0.25 MG Tab PO SCH (19:21)
[2019-05-15] MEDS: Sertraline 50 MG Tab PO SCH (19:21)
[2019-05-15] MEDS: Simvastatin 20 MG Tab PO SCH (19:22)
[2019-05-16] MEDS: Omeprazole 20 MG Cap.CR PO SCH (07:52)
[2019-05-16] MEDS: Lisinopril 10 MG Tab PO SCH (07:52)
[2019-05-16] MEDS: Aspirin 81 MG Tab.EC PO SCH (07:53)
[2019-05-16] MEDS: amLODIPine 5 MG Tab PO SCH (07:53)
[2019-05-16] MEDS: Hydrochlorothiazide 12.5 MG Cap PO SCH (07:53)
[2019-05-16] MEDS: Potassium Chloride 10 MEQ Tab.ER PO SCH (07:53)
[2019-05-16] MEDS: Fluticasone Propionate Nasal Spray 16 GM Bottle NASBOTH SCH (07:55)
[2019-05-16] MEDS: Brimonidine 0.2% Ophth Soln 5 ML Bottle EYEBOTH SCH (07:55)
[2019-05-16 07:56] VITALS: BP 124/64
[2019-05-16] MEDS: Cholecalciferol (Vitamin D3) 25 MCG Tab PO SCH (07:56)
[2019-05-16 08:03] VITALS: PULSE 89
--- NOTE | 2019-05-16 08:12 | PCM.DCSUM1 ---
Discharge Summary - Discharge Data Discharge Date: 05/16/19 Discharge Disposition: Home, Self-Care 01 Condition: Good - Referral to Home Health Primary Care Physician: PCP None - Discharge Diagnosis/Problem(s) (1) Weakness generalized SNOMED Code(s): 84593356 ICD Code: R53.1 - WEAKNESS Status: Acute Priority: High Current Visit: Yes (2) Closed right hip fracture SNOMED Code(s): 310459468 ICD Code: S72.001A - FRACTURE OF UNSP PART OF NECK OF RIGHT FEMUR, INIT Status: Resolved Priority: High Current Visit: No Qualifiers: Encounter type: sequela Qualified Code(s): S72.001S - Fracture of unspecified part of neck of right femur, sequela - Patient Summary/Data Consults: Consultations 05/08/19 10:16 OT Evaluation and Treatment [CONS] Routine Please Evaluate and Treat. OT Reason for Consult: ADL's This query below is only for informational purposes and is not editable. PT Evaluation and Treatment [CONS] Routine Please Evaluate and Treat. PT Reason for Consult: Ambulation This query below is only for informational purposes and is not editable. - Patient Instructions Diet: Heart Healthy Diet Activity: Full Weight Bearing - Discharge Plan Home Medications: Home Meds Aspirin [Adult Low Dose Aspirin EC] 81 mg PO DAILY 01/18/16 [History] Bimatoprost [LUMIGAN 0.01% Ophth Soln] 1 drop EYEBOTH QPM 01/18/16 [History] Brimonidine [Alphagan 0.2% Ophth Soln] 1 drop EYEBOTH BID 01/18/16 [History] Fluticasone Propionate [Flonase] 1 spray NASBOTH DAILY 01/18/16 [History] Hydrochlorothiazide 1 tab PO DAILY 01/18/16 [History] Omeprazole 40 mg PO ACBREAKFAST 01/18/16 [History] Sertraline HCl 50 mg PO QPM 01/18/16 [History] Simvastatin 1 tab PO BEDTIME 01/18/16 [History] amLODIPine Besylate [Amlodipine Besylate] 1 tab PO DAILY 01/18/16 [History] ALPRAZolam [Alprazolam] 0.25 mg PO TID PRN 03/25/19 [History] Acetaminophen 1,000 mg PO Q8HR PRN 05/07/19 [History] Cholecalciferol (Vitamin D3) [Vitamin D3] 25 mcg PO BID 05/07/19 [History] Lisinopril [Zestril] 10 mg PO DAILY 05/07/19 [History] Meclizine [Antivert] 25 mg PO TID PRN 05/07/19 [History] Potassium Chloride [Klor-Con 10] 10 meq PO DAILY 05/07/19 [History] traMADol [Ultram] 50 mg PO Q6H PRN 05/07/19 [History] ALPRAZolam [Alprazolam] 0.5 mg PO QPM 05/08/19 [History] Patient Handouts: Wound Care, Adult - Discharge Summary/Plan Comment DC Time >30 min.: No Discharge Summary/Plan Comment: Patient counseled on discharge. Discussed continued f/u with PT/OT as needed and rtc for concerns or health issues. Discussed assistance at home and she feels that her son will help her as her older son talked to the current live-in son. Discharge to home as directed and f/u in clinic as routine. - Patient Data Vitals - Most Recent: Last Vital Signs Temp 37.1 C 05/16/19 08:02 Pulse 89 05/16/19 08:02 Resp 16 05/16/19 08:02 BP 124/64 05/16/19 08:02 Pulse Ox 96 05/16/19 08:02 Weight - Most Recent: 78.018 kg I&O - Last 24 hours: Intake & Output 05/15/19 05/16/19 05/16/19 22:59 06:59 14:59 Intake Total 1912 Balance 191 Lab Results - Last 24 hrs: Laboratory Results - last 24 hr 05/15/19 Range/Units 09:15 Sodium 141 (136-145) mmol/L Potassium 4.6 (3.5-5.1) mmol/L Chloride 106 (98-107) mmol/L Carbon Dioxide 24.2 (21.0-32.0) mmol/L Anion Gap 15.4 H (5.0-15.0) mmol/L BUN 20 D (8-26) mg/dL Creatinine 1.12 H D (0.55-1.02) mg/dL Est Cr Clr Drug Dosing 30.10 mL/min Estimated GFR (MDRD) 46 L (>60) MLS/MIN BUN/Creatinine Ratio 17.9 (6-25) Glucose 162 H D (74-100) mg/dL Calcium 8.7 (8.5-10.1) mg/dL Med Orders - Current: Current Medications Acetaminophen (Tylenol Extra Strength) 1,000 mg PO Q8HR PRN PRN Reason: Pain (mild 1-3) Last Admin: 05/15/19 19:20 Dose: 1,000 mg Alprazolam (Xanax) 0.5 mg PO QPM [facility] Last Admin: 05/15/19 19:21 Dose: 0.5 mg Alprazolam (Xanax) 0.25 mg PO TID PRN PRN Reason: ANXIETY Amlodipine Besylate (Norvasc) 5 mg PO DAILY [facility] Last Admin: 05/16/19 07:53 Dose: 5 mg Aspirin (Halfprin) 81 mg PO DAILY [facility] Last Admin: 05/16/19 07:53 Dose: 81 mg Bimatoprost (Lumigan 0.01% Ophth Soln) 0 ml EYEBOTH QPM [facility] Last Admin: 05/15/19 19:20 Dose: 1 drop Brimonidine Tartrate (Alphagan 0.2% Ophth Soln) 0 ml EYEBOTH BID [facility] Last Admin: 05/16/19 07:55 Dose: 1 drop Cholecalciferol (Vitamin D3) 25 mcg PO BID [facility] Last Admin: 05/16/19 07:56 Dose: 25 mcg Fluticasone Propionate (Flonase) 0 gm NASBOTH DAILY [facility] Last Admin: 05/16/19 07:55 Dose: 1 spray Hydrochlorothiazide (Hydrochlorothiazide) 12.5 mg PO DAILY [facility] Last Admin: 05/16/19 07:53 Dose: 12.5 mg Lisinopril (Prinivil) 10 mg PO DAILY [facility] Last Admin: 05/16/19 07:52 Dose: 10 mg Meclizine HCl (Antivert) 25 mg PO TID PRN PRN Reason: DIZZINESS Last Admin: 05/09/19 09:51 Dose: 25 mg Omeprazole (Omeprazole) 40 mg PO ACBREAKFAST [facility] Last Admin: 05/16/19 07:52 Dose: 40 mg Potassium Chloride (Klor-Con 10) 10 meq PO DAILY [facility] Last Admin: 02/07/20 07:53 Dose: 10 meq Sertraline HCl (Zoloft) 50 mg PO QPM [facility] Last Admin: 05/15/19 19:21 Dose: 50 mg Simvastatin (Zocor) 20 mg PO BEDTIME [facility] Last Admin: 05/15/19 19:22 Dose: 20 mg Tramadol HCl (Ultram) 50 mg PO Q6H PRN PRN Reason: Pain (moderate 4-6) Last Admin: 05/14/19 20:01 Dose: 50 mg Discontinued Medications Alprazolam (Xanax) 0.5 mg PO BEDTIME [facility] Tuberculin PPD (Aplisol) 5 unit IDERM ONETIME ONE Stop: 05/08/19 11:32 Last Admin: 05/08/19 13:00 Dose: 5 unit
[2019-05-16] MEDS ORDERED: Loperamide 2 MG Cap PO PRN (09:47)
--- NOTE | 2019-05-16 13:20 | CR ---
Date of Service: 05/16/19 Clinical Data: Pain in wrist. RIGHT WRIST: There is diffuse osteopenia. 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 No acute fracture or dislocation. There are multiple subchondral cysts noted. MTDD
== END 2019-05-16 13:26 | disposition home or self-care (01) | DRG 561 ==
LOC: LB.MS 10:16
PROVIDERS: ADMIT Family Medicine; ATTEND Family Medicine
DX: Z47.1 Aftercare following joint replacement surgery (principal); Z96.641 Presence of right artificial hip joint; R53.1 Weakness; S72.141D Displaced intertrochanteric fracture of right femur, subsequent encounter for closed fracture with routine healing; X58.XXXD Exposure to other specified factors, subsequent encounter; H91.90 Unspecified hearing loss, unspecified ear; E78.00 Pure hypercholesterolemia, unspecified; I10 Essential (primary) hypertension; K21.9 Gastro-esophageal reflux disease without esophagitis; R32 Unspecified urinary incontinence; M19.90 Unspecified osteoarthritis, unspecified site; F41.9 Anxiety disorder, unspecified; F32.9 Major depressive disorder, single episode, unspecified; E87.6 Hypokalemia; E55.9 Vitamin D deficiency, unspecified; Z98.51 Tubal ligation status; Z79.82 Long term (current) use of aspirin; Z79.899 Other long term (current) drug therapy
CPT/HCPCS: 36415; 73100-RT; 80048; 86580; 97110-GP; 97116-GP; 97165-GO; 97530-GP; 97535-GO; A9270-GY

== ENCOUNTER 2021-08-30 16:30 | Inpatient (IN) | payer MEDICAID, MEDICARE ==
[2021-08-30] MEDS: Sodium Chloride 0.9% 1,000 ML IV SCH ×2 (16:50→19:45)
[2021-08-30] MEDS ORDERED: Diltiazem 25 MG/5 ML SDV IVPUSH ONE (16:56)
[2021-08-30] MEDS: Diltiazem 100 MG in Sodium Chloride 0.9% 100 ML IV SCH ×2 (17:21→19:42)
[2021-08-30 17:25] LABS: ESTIMATED GFR 32 MLS/MIN (>60)
[2021-08-30] MEDS: ALPRAZolam 0.25 MG Tab PO SCH (19:51)
[2021-08-30] MEDS: Enoxaparin 30 MG/0.3 ML Syringe SUBCUT SCH (19:51)
[2021-08-30] MEDS: Simvastatin 20 MG Tab PO SCH (19:51)
[2021-08-30] MEDS: Sertraline 50 MG Tab PO SCH (19:51)
[2021-08-30] MEDS: Brimonidine 0.2% Ophth Soln 5 ML Bottle EYEBOTH SCH (20:41)
[2021-08-30] MEDS: Acetaminophen 500 MG Tab PO PRN (20:44)
[2021-08-31] MEDS: Diltiazem 100 MG in Sodium Chloride 0.9% 100 ML IV SCH ×2 (01:16→08:00)
[2021-08-31] MEDS: Pantoprazole 40 MG Tab.CR PO SCH (07:59)
[2021-08-31] MEDS: Enoxaparin 30 MG/0.3 ML Syringe SUBCUT SCH (08:19)
[2021-08-31] MEDS: Aspirin 81 MG Tab.EC PO SCH (08:20)
[2021-08-31] MEDS: Brimonidine 0.2% Ophth Soln 5 ML Bottle EYEBOTH SCH ×2 (08:20→19:43)
[2021-08-31] MEDS ORDERED: Diltiazem 120 MG Cap.CD PO SCH (10:00)
[2021-08-31] MEDS: ALPRAZolam 0.25 MG Tab PO PRN ×2 (10:05→17:32)
[2021-08-31] MEDS: Acetaminophen 500 MG Tab PO PRN ×2 (10:10→19:51)
[2021-08-31] MEDS: Apixaban 5 MG Tab PO SCH ×2 (11:27→19:52)
[2021-08-31] MEDS: Simvastatin 20 MG Tab PO SCH (19:52)
[2021-08-31] MEDS: Sertraline 50 MG Tab PO SCH (19:52)
[2021-08-31] MEDS: ALPRAZolam 0.25 MG Tab PO SCH (21:14)
[2021-09-01] MEDS: Aspirin 81 MG Tab.EC PO SCH (07:33)
[2021-09-01] MEDS: Pantoprazole 40 MG Tab.CR PO SCH (07:34)
[2021-09-01] MEDS: Apixaban 5 MG Tab PO SCH ×2 (07:34→20:31)
[2021-09-01] MEDS ORDERED: Diltiazem 180 MG Cap.CD PO SCH (08:00)
[2021-09-01] MEDS: Brimonidine 0.2% Ophth Soln 5 ML Bottle EYEBOTH SCH ×2 (08:26→20:29)
[2021-09-01] MEDS: ALPRAZolam 0.25 MG Tab PO SCH (20:20)
[2021-09-01] MEDS: Simvastatin 20 MG Tab PO SCH (20:20)
[2021-09-01] MEDS: Sertraline 50 MG Tab PO SCH (20:21)
[2021-09-01] MEDS: ALPRAZolam 0.25 MG Tab PO PRN (21:30)
[2021-09-01] MEDS ORDERED: Diltiazem IR 60 MG Tab PO ONE (22:46)
[2021-09-02] MEDS: Pantoprazole 40 MG Tab.CR PO SCH (07:52)
[2021-09-02] MEDS: Apixaban 5 MG Tab PO SCH ×2 (07:52→20:37)
[2021-09-02] MEDS: Aspirin 81 MG Tab.EC PO SCH (07:52)
[2021-09-02] MEDS: Diltiazem 120 MG Cap.CD PO SCH (07:54)
[2021-09-02] MEDS: Brimonidine 0.2% Ophth Soln 5 ML Bottle EYEBOTH SCH ×2 (09:41→20:37)
[2021-09-02] MEDS: Metoprolol Succinate 25 MG Tab.ER PO SCH (10:13)
[2021-09-02] MEDS: Acetaminophen 500 MG Tab PO PRN ×2 (12:33→20:43)
[2021-09-02] MEDS: Simvastatin 20 MG Tab PO SCH (20:37)
[2021-09-02] MEDS: ALPRAZolam 0.25 MG Tab PO SCH (20:37)
[2021-09-02] MEDS: Sertraline 50 MG Tab PO SCH (20:37)
[2021-09-02] MEDS: ALPRAZolam 0.25 MG Tab PO PRN (20:37)
[2021-09-03] MEDS: Pantoprazole 40 MG Tab.CR PO SCH (06:39)
[2021-09-03] MEDS: Brimonidine 0.2% Ophth Soln 5 ML Bottle EYEBOTH SCH ×2 (08:05→19:38)
[2021-09-03] MEDS: Aspirin 81 MG Tab.EC PO SCH (08:06)
[2021-09-03] MEDS: Diltiazem 120 MG Cap.CD PO SCH (08:06)
[2021-09-03] MEDS: Metoprolol Succinate 25 MG Tab.ER PO SCH (08:09)
[2021-09-03] MEDS: Apixaban 5 MG Tab PO SCH ×2 (08:10→19:38)
[2021-09-03] MEDS: ALPRAZolam 0.25 MG Tab PO SCH (19:36)
[2021-09-03] MEDS: ALPRAZolam 0.25 MG Tab PO PRN (19:36)
[2021-09-03] MEDS: Sertraline 50 MG Tab PO SCH (19:37)
[2021-09-03] MEDS: Simvastatin 20 MG Tab PO SCH (19:37)
[2021-09-03] MEDS: Acetaminophen 500 MG Tab PO PRN (19:39)
[2021-09-04] MEDS: Pantoprazole 40 MG Tab.CR PO SCH (06:30)
[2021-09-04] MEDS: Brimonidine 0.2% Ophth Soln 5 ML Bottle EYEBOTH SCH ×2 (07:24→19:36)
[2021-09-04] MEDS: Aspirin 81 MG Tab.EC PO SCH (07:25)
[2021-09-04] MEDS: Diltiazem 120 MG Cap.CD PO SCH (07:25)
[2021-09-04] MEDS: Metoprolol Succinate 25 MG Tab.ER PO SCH (07:25)
[2021-09-04] MEDS: Apixaban 5 MG Tab PO SCH ×2 (07:26→19:36)
[2021-09-04] MEDS: Simvastatin 20 MG Tab PO SCH (19:36)
[2021-09-04] MEDS: ALPRAZolam 0.25 MG Tab PO SCH (19:36)
[2021-09-04] MEDS: ALPRAZolam 0.25 MG Tab PO PRN (19:37)
[2021-09-04] MEDS: Acetaminophen 500 MG Tab PO PRN (19:38)
[2021-09-04] MEDS: Sertraline 50 MG Tab PO SCH (19:38)
[2021-09-05] MEDS: Pantoprazole 40 MG Tab.CR PO SCH (06:35)
[2021-09-05] MEDS: Metoprolol Succinate 25 MG Tab.ER PO SCH (08:36)
[2021-09-05] MEDS: Aspirin 81 MG Tab.EC PO SCH (08:36)
[2021-09-05] MEDS: Apixaban 5 MG Tab PO SCH ×2 (08:36→20:02)
[2021-09-05] MEDS: Diltiazem 120 MG Cap.CD PO SCH (08:39)
[2021-09-05] MEDS: Brimonidine 0.2% Ophth Soln 5 ML Bottle EYEBOTH SCH ×2 (08:52→20:03)
[2021-09-05] MEDS: Acetaminophen 500 MG Tab PO PRN ×2 (15:51→20:04)
[2021-09-05] MEDS: ALPRAZolam 0.25 MG Tab PO PRN ×2 (15:52→20:03)
[2021-09-05] MEDS: ALPRAZolam 0.25 MG Tab PO SCH (20:02)
[2021-09-05] MEDS: Simvastatin 20 MG Tab PO SCH (20:02)
[2021-09-05] MEDS: Sertraline 50 MG Tab PO SCH (20:02)
[2021-09-06] MEDS: Metoprolol Succinate 25 MG Tab.ER PO SCH (07:32)
[2021-09-06] MEDS: Pantoprazole 40 MG Tab.CR PO SCH (07:32)
[2021-09-06] MEDS: Diltiazem 120 MG Cap.CD PO SCH (07:33)
[2021-09-06] MEDS: Brimonidine 0.2% Ophth Soln 5 ML Bottle EYEBOTH SCH ×2 (07:34→20:04)
[2021-09-06] MEDS: Aspirin 81 MG Tab.EC PO SCH (07:34)
[2021-09-06] MEDS: Apixaban 5 MG Tab PO SCH ×2 (07:34→20:05)
[2021-09-06] MEDS: Simvastatin 20 MG Tab PO SCH (20:05)
[2021-09-06] MEDS: ALPRAZolam 0.25 MG Tab PO SCH (20:05)
[2021-09-06] MEDS: Sertraline 50 MG Tab PO SCH (20:06)
[2021-09-06] MEDS: Acetaminophen 500 MG Tab PO PRN (20:08)
[2021-09-06] MEDS: Latanoprost 0.005% Ophth Soln 2.5 ML Bottle EYEBOTH SCH (20:08)
[2021-09-07] MEDS: Metoprolol Succinate 25 MG Tab.ER PO SCH (07:16)
[2021-09-07] MEDS: Apixaban 5 MG Tab PO SCH ×2 (07:16→19:40)
[2021-09-07] MEDS: Diltiazem 120 MG Cap.CD PO SCH (07:16)
[2021-09-07] MEDS: Pantoprazole 40 MG Tab.CR PO SCH (07:16)
[2021-09-07] MEDS: Aspirin 81 MG Tab.EC PO SCH (07:16)
[2021-09-07] MEDS: Brimonidine 0.2% Ophth Soln 5 ML Bottle EYEBOTH SCH ×2 (07:18→19:39)
[2021-09-07] MEDS: Sertraline 50 MG Tab PO SCH (19:39)
[2021-09-07] MEDS: ALPRAZolam 0.25 MG Tab PO SCH (19:40)
[2021-09-07] MEDS: Simvastatin 20 MG Tab PO SCH (19:40)
[2021-09-07] MEDS: Latanoprost 0.005% Ophth Soln 2.5 ML Bottle EYEBOTH SCH (19:40)
[2021-09-08] MEDS: Aspirin 81 MG Tab.EC PO SCH (07:45)
[2021-09-08] MEDS: Pantoprazole 40 MG Tab.CR PO SCH (07:45)
[2021-09-08] MEDS: Apixaban 5 MG Tab PO SCH ×2 (07:45→19:10)
[2021-09-08] MEDS: Diltiazem 120 MG Cap.CD PO SCH (07:45)
[2021-09-08] MEDS: Metoprolol Succinate 25 MG Tab.ER PO SCH (07:46)
[2021-09-08] MEDS: Brimonidine 0.2% Ophth Soln 5 ML Bottle EYEBOTH SCH ×2 (07:47→19:13)
[2021-09-08] MEDS: Acetaminophen 500 MG Tab PO PRN (16:01)
[2021-09-08] MEDS: Latanoprost 0.005% Ophth Soln 2.5 ML Bottle EYEBOTH SCH (19:10)
[2021-09-08] MEDS: Simvastatin 20 MG Tab PO SCH (19:10)
[2021-09-08] MEDS: Sertraline 50 MG Tab PO SCH (19:10)
[2021-09-08] MEDS: ALPRAZolam 0.25 MG Tab PO SCH (19:13)
[2021-09-09] MEDS: Acetaminophen 500 MG Tab PO PRN (06:27)
[2021-09-09] MEDS: Pantoprazole 40 MG Tab.CR PO SCH (06:28)
[2021-09-09] MEDS: Brimonidine 0.2% Ophth Soln 5 ML Bottle EYEBOTH SCH (07:56)
[2021-09-09] MEDS: Diltiazem 120 MG Cap.CD PO SCH (07:56)
[2021-09-09] MEDS: Metoprolol Succinate 25 MG Tab.ER PO SCH (07:59)
[2021-09-09] MEDS: Apixaban 5 MG Tab PO SCH (07:59)
[2021-09-09] MEDS: Aspirin 81 MG Tab.EC PO SCH (07:59)
[2021-09-09 08:00] VITALS: BP 123/73; PULSE 68
== END 2021-09-09 11:45 | disposition home or self-care (01) | DRG 310 ==
LOC: LB.ED 16:30 → LB.MS 18:30 → UNDOADMIN 18:30 → LB.MS 18:33
PROVIDERS: ADMIT Nurse Practitioner Family; ATTEND Nurse Practitioner Family
DX: I48.91 Unspecified atrial fibrillation (principal); W01.0XXA Fall on same level from slipping, tripping and stumbling without subsequent striking against object, initial encounter; H91.90 Unspecified hearing loss, unspecified ear; S09.8XXA Other specified injuries of head, initial encounter; W19.XXXA Unspecified fall, initial encounter; R29.6 Repeated falls; E78.00 Pure hypercholesterolemia, unspecified; K21.9 Gastro-esophageal reflux disease without esophagitis; R32 Unspecified urinary incontinence; I12.9 Hypertensive chronic kidney disease with stage 1 through stage 4 chronic kidney disease, or unspecified chronic kidney disease; N18.30 Chronic kidney disease, stage 3 unspecified; M19.90 Unspecified osteoarthritis, unspecified site; F32.A Depression, unspecified; R42 Dizziness and giddiness; F41.9 Anxiety disorder, unspecified; E55.9 Vitamin D deficiency, unspecified; Z20.822 Contact with and (suspected) exposure to COVID-19; Z79.01 Long term (current) use of anticoagulants; Z79.82 Long term (current) use of aspirin; Z79.899 Other long term (current) drug therapy; Z98.51 Tubal ligation status
CPT/HCPCS: 36415; 80053; 85025; 93005 ×2; 93010 ×2; 96365; 96366; 99285; J3490 ×2; J7030; U0002; 71045; 83735; 97110-GP; 97116-GP; 97161-GP; 97165-GO; 97530-GP; 97535-GO; 99222; 99231; 99232; 99238; A9270-GY; J1650